=== PATIENT | female | born 1965 | race Caucasian/White ===

== ENCOUNTER 2024-01-14 10:25 | Emergency (ER) | payer OTHER ==
[~2024-01-14] VITALS: Ht 167.6 cm; Wt 82.7 kg
[2024-01-14 10:39] VITALS: BP 159/88; PULSE 60; RESP 16; TEMP 98; O2SAT 99
[2024-01-14 11:11] LABS: BASOPHILS % (AUTO) 0.5 % (0.0-2.0); EOSINOPHILS # (AUTO) 0.2 K/uL (0-0.4); EOSINOPHILS % (AUTO) 2.4 % (0.0-4.0); HEMATOCRIT 43.1 % (36-48); HEMOGLOBIN 14.7 g/dL (12.0-16.0); LYMPHOCYTES % (AUTO) 20.5 % (20.5-51.1); MEAN CORPUSCULAR HEMOGLOBIN 31 pg (27-31); MEAN CORPUSCULAR HGB CONC 34 g/dL (33-37); MEAN CORPUSCULAR VOLUME 91.2 fL (80-94); MONOCYTES # (AUTO) 0.6 K/uL (0.8-1.0); MONOCYTES % (AUTO) 6.7 % (1.7-9.3); NEUTROPHILS # (AUTO) 6.7 K/uL (1.8-7.7); NEUTROPHILS % (AUTO) 69.9 % (42.2-75.2); PLATELET COUNT (AUTO) 334 K/uL (140-450); RED BLOOD CELL COUNT(AUTO) 4.73 MIL/uL (4.20-5.40); RED CELL DISTRIBUTION WIDTH 13.6 % (11.6-13.7); WHITE BLOOD COUNT (AUTO) 9.6 K/uL (4.8-10.8)
[2024-01-14 11:24] LABS: ANION GAP 13.5 (8-16); CALCIUM 9.2 mg/dL (8.5-10.1); CREATININE 0.8 mg/dL (0.6-1.3); POTASSIUM 4.5 mmol/L (3.5-5.1)
[2024-01-14 12:10] VITALS: BP 155/95; TEMP 98; O2SAT 99
[2024-01-14] MEDS: NACL 0.9% 1,000 ML IV ONE (13:14)
[2024-01-14] MEDS ORDERED: KETOROLAC 30 MG/ML VIAL ONE (13:41)
[2024-01-14] MEDS ORDERED: CYCLOBENZAPRINE 10 MG TAB ONE (13:42)
[2024-01-14] MEDS: KETOROLAC 30 MG/ML VIAL IVP ONE (13:46)
[2024-01-14] MEDS: CYCLOBENZAPRINE 10 MG TAB PO ONE (13:48)
[2024-01-14] MEDS: ALBUTEROL SULFATE/IPRATROPIU 3 ML SOL IH ONE (14:22)
[2024-01-14 14:23] VITALS: PULSE 57; RESP 18; O2SAT 99
[2024-01-14] MEDS ORDERED: ALBU6.7H6 IH (14:33)
[2024-01-14] MEDS ORDERED: NAPR-54 PO (14:33)
[2024-01-14] MEDS ORDERED: METH4TAB1 PO (14:33)
== END 2024-01-14 14:56 | disposition home or self-care (01) ==
LOC: MED 10:25
DX: R09.1 Pleurisy (principal); R00.1 Bradycardia, unspecified; Z72.0 Tobacco use; Z79.899 Other long term (current) drug therapy
CPT/HCPCS: 36415; 71046; 71275; 80048; 83880; 84484; 85025; 85379; 93005; 94640; 96361; 96374; 99285; J1885; J7030; Q9967